=== PATIENT | male | born 1980 | race Caucasian/White ===

== ENCOUNTER 2017-05-31 20:09 | Emergency (ER) | payer BC ==
[~2017-05-31] VITALS: Ht 185.4 cm; Wt 99.8 kg
== END 2017-05-31 20:33 | disposition home or self-care (01) ==
LOC: ED 20:09
DX: S01.01XA Laceration without foreign body of scalp, initial encounter (principal); W22.8XXA Striking against or struck by other objects, initial encounter; Y93.89 Activity, other specified; Y92.89 Other specified places as the place of occurrence of the external cause; Y99.9 Unspecified external cause status